=== PATIENT | male | born 1975 | race African-American/Black ===

== ENCOUNTER 2017-12-21 10:10 | Emergency (ER) | payer BC, SELFPAY ==
[2017-12-21] MEDS ORDERED: Triple Antibiotic Oint 1 GM Packet ONE (11:06)
== END 2017-12-21 11:35 | disposition home or self-care (01) ==
LOC: MADERS 10:10
DX: S10.92XA Blister (nonthermal) of unspecified part of neck, initial encounter (principal); S20.421A Blister (nonthermal) of right back wall of thorax, initial encounter; E11.9 Type 2 diabetes mellitus without complications; I10 Essential (primary) hypertension; F17.210 Nicotine dependence, cigarettes, uncomplicated; Z79.84 Long term (current) use of oral hypoglycemic drugs; Z79.899 Other long term (current) drug therapy; X58.XXXA Exposure to other specified factors, initial encounter
CPT/HCPCS: 99283